=== PATIENT | male | born 1980 | race African-American/Black ===

== ENCOUNTER 2018-03-07 19:50 | Emergency (ER) | payer SELFPAY ==
[~2018-03-07] VITALS: Ht 193 cm; Wt 113.6 kg
[2018-03-07 20:03] VITALS: BP 126/75
== END 2018-03-07 22:38 | disposition left against medical advice (07) ==
LOC: EMS 19:51
DX: M54.16 Radiculopathy, lumbar region (principal); F17.210 Nicotine dependence, cigarettes, uncomplicated
CPT/HCPCS: 99281